=== PATIENT | male | born 1980 | race Two or more races ===

== ENCOUNTER 2016-12-11 04:24 | Inpatient (IN) | payer SELFPAY ==
[~2016-12-11] VITALS: Ht 175.3 cm; Wt 91.4 kg
--- NOTE | ~2016-12-11 | ER ---
PATIENT'S NAME: MATEUSZ ARGUETA [facility] AGE: 36 Y [address] ROOM: [place], [place] [address] LOCATION: [facility] ADMIT DATE: 12/11/2016 ER/Outpatient Report DISCHARGE DATE: FAMILY PHYSICIAN: PHYSICIAN, NO ATTENDING PHYSICIAN: Keven Chapman Admission date and time are documented in the medical record. I saw the patient at 0440 hours. CHIEF COMPLAINT: Elevated blood sugar, polyuria, polydipsia with nausea, vomiting, and lightheadedness. HISTORY OF PRESENT ILLNESS: This patient is a 36-year-old male from [place]. He has been in [place] with family and headed back to [place] with family. Over the past 24 hours, he has become ill with nausea, vomiting, lethargy, and generalized malaise. By history, the patient was diagnosed with diabetes about 3 years ago. He will be classified as a zkx-fqjinan-hnqplmidx diabetic type 2. He was on oral diabetic medications for about 2 years. Over the past year because of his strict diet and exercise program, he has been off of medications and doing well. He went to [place] with family over the past week or so. His diet changed and he has been eating a lot of sugary foods. On the way home here, he has gotten ill. He checked his blood sugar and it was 390. He was brought to the emergency room by family for evaluation. On arrival, he is awake, alert, and responsive. He has no chest pain or shortness of breath. He has no abdominal pain. He has nausea and vomited once. No diarrhea. He has polyuria and has urinated 20+ times in the past 24 hours. He is lightheaded and dizzy, but no syncope or near syncope. No fall or trauma. No recent colds, coughs, flus, fever, chills, or sweats. No headache, eyes, ears, nose, throat, neck, or spine pain. No joint or muscle swelling, redness, or pain. No skin eruptions or rash. No history of neuro changes or psych issues. He does have rfm-yofcrwi-qpgteurht diabetes mellitus type 2. HOME MEDICATIONS: None. ALLERGIES: NONE. SOCIAL HISTORY: Nonsmoker. Occasional intake of alcohol. SIGNIFICANT PAST MEDICAL HISTORY: Ses-kydwvkm-kxzgtbypz diabetes mellitus type 2 otherwise negative. PATIENT'S NAME: MATEUSZ ARGUETA [facility] AGE: 36 Y [address] ROOM: [place] [address] LOCATION: ED ADMIT DATE: 12/11/2016 ER/Outpatient Report DISCHARGE DATE: FAMILY PHYSICIAN: PHYSICIAN, NO ATTENDING PHYSICIAN: Keven Chapman OPERATIONS: None. REVIEW OF SYSTEMS: All systems reviewed by me are negative with the exception of those discussed in the history of present illness. PHYSICAL EXAMINATION: VITAL SIGNS: Temperature 96.7, tympanic, pulse 113, regular, respirations 16, blood pressure 146/98, and O2 saturation on room air is 98%. HEAD: Normocephalic. EYES: Extraocular muscles intact. PERRL. EARS: Clear TMs bilaterally. NOSE: Clear. THROAT: Clear. Mucous membranes moist. NECK: No nuchal rigidity. No thyromegaly or cervical adenopathy. Range of motion full. No tenderness. SPINE: Nontender. No deformity. LUNGS: Clear. No rales, rhonchi, or wheezes. HEART: Regular, tachy, pulses palpable. No chest wall or ribcage pain to palpation. ABDOMEN: Soft, nondistended, nontender. Active bowel tones. No organomegaly or abnormal mass palpable. No CVA tenderness. EXTREMITIES: No peripheral edema, cyanosis, or deformity. NEUROVASCULAR: Intact. SKIN: Clear. No skin eruptions or rash. EMERGENCY DEPARTMENT COURSE: I did start the patient on IV normal saline and fluids. I did give him Zofran for nausea. LABORATORY DATA: Serum acetone was positive 1:32. Venous pH was 7.04. CMS showed a low sodium of 129, low CO2 content of 9, elevated anion gap of 28.5, elevated glucose of 405, low calcium of 7.6, elevated alk phos of 189, magnesium was 2.3. CPK was 89. Yyxeo-fw-yplm cardiac enzymes were normal. White count was 8500, 74 segs, 22 lymphs, 3 monos, 1 baso, hemoglobin is 17.4 with hematocrit 49.2, and platelet count was 213,000. Pro-time is 9.3 with an INR 0.89. Hemoglobin A1c was 11. IMPRESSION: 1. Diabetic ketoacidosis with a pH of 7.04, serum acetone positive 1:32, and elevated blood sugar 405. 2. History of cpt-cznvbqo-xvanxylrv diabetes mellitus type 2, x3 years. PATIENT'S NAME: MATEUSZ ARGUETA [facility] AGE: 36 Y [address] ROOM: [place], [place] [address] LOCATION: [facility] ADMIT DATE: 12/11/2016 ER/Outpatient Report DISCHARGE DATE: FAMILY PHYSICIAN: PHYSICIAN, OKSANA ATTENDING PHYSICIAN: Keven Chapman 3. Polyuria, polydipsia, and elevated blood sugar. PLAN: Discussed the patient with Dr. Bull, hospitalist. We will admit. We did start the patient on IV insulin. We will admit to the hospital. Discussion ensued with the patient concerning my findings and recommendations, he understands. Accumulated critical care time was 30 minutes. KEVEN CHAPMAN MD SDS/modl /[id number] d: 12/11/16621 t: 12/11/16 1808, OUTPATIENT REPORT
--- NOTE | ~2016-12-11 | HP ---
PATIENT'S NAME: VICKI SHUKLA [facility] AGE: 36 Y [address] ROOM: [place] [address] LOCATION: [facility]U ADMIT DATE: 12/11/2016 History & Physical DISCHARGE DATE: FAMILY PHYSICIAN: PHYSICIAN, NO ATTENDING PHYSICIAN: HERMINIA DUTTA DATE OF SERVICE: CHIEF COMPLAINT: Polyuria, polydipsia and generalized weakness. HISTORY OF PRESENT ILLNESS: This is a 36-year-old, Kinyarwanda speaking male who has been diagnosed with diabetes type 1 three years ago back in [place], [place]. At that time, he was using subcutaneous insulin and then he was following a very good diet control and was exercising and his glycemia was under good control. Therefore, somebody over there in [place] stopped the subcu insulin in a type 1 diabetes patient and then recently patient went to [place]. While he was touring in [place], the patient was eating greasy food and salty diet and sweet food and was not exercising anymore. This past Thursday about 4 days ago, the patient started feeling generalized weakness, blurry vision, nausea, and vomiting x1, polyuria, polydipsia, and just not feel well in general. The patient came to [place] yesterday to visit a friend and because of the worsening of the symptoms, the patient came here to the ED for evaluation. In the ED, the patient was found to be in full-blown DKA and will be admitted for care of DKA. The cause is most likely consistent with dietary indiscretion and the discontinuation of the subcu insulin use. The patient denies any headache, cough, shortness of breath, chest pain, fever, chills or dysuria or any other symptoms. REVIEW OF SYSTEMS: As mentioned in the history of present illness. All other systems were reviewed and were negative except those mentioned in history of present illness. PAST MEDICAL HISTORY: Diabetes type 1 diagnosed 3 years ago. ALLERGIES: NONE. HOME MEDICATIONS: None. PATIENT'S NAME: VICKI SHUKLA [facility] AGE: 36 Y [address] ROOM: [address] [address] LOCATION: [facility]PCU ADMIT DATE: 12/11/2016 History & Physical DISCHARGE DATE: FAMILY PHYSICIAN: PHYSICIAN, NO ATTENDING PHYSICIAN: HERMINIA DUTTA SOCIAL HISTORY: Social alcohol drinker, but he denies any cigarette or any illegal drug use. FAMILY HISTORY: Both parents are healthy. PAST SURGICAL HISTORY: None. PHYSICAL EXAMINATION: VITAL SIGNS: At the time of my dictation, temperature 98, blood pressure 145/87, respirations 16, heart rate 90 and saturation 97% on room air. GENERAL APPEARANCE: Alert and oriented x3, in no acute distress. HEENT: Pupils equally round and reactive to light. Extraocular muscles intact. Anicteric sclerae. Nasal turbinates are normal bilaterally. Dry oral mucosa. NECK: No JVD. CARDIOVASCULAR: Regular rate and rhythm. No murmur. No rubs. No gallops. Normal S1, S2. RESPIRATORY: Clear to auscultation. No rales. No rhonchi. No wheezing. No crackles. ABDOMEN: Soft, mildly tender to palpation diffusely, but there is no abdominal rigidity, bowel sounds present, no mass, nondistended, no ascites. EXTREMITIES: No edema in upper or lower extremities. NEUROLOGICAL: Grossly nonfocal. SKIN: No ulcer, no rash, no cyanosis. LABORATORY DATA: Venous blood gas show pH of 7.04, pCO2 of 29 and bicarb was 7.8. CPK 89 and troponin less than 0.04. White blood cell 8.5, hemoglobin 17.4, hematocrit 49.2, platelet 213. Glucose 405, BUN 19, creatinine 1.0. Sodium 129, potassium 4.5, chloride 96, CO2 9, calcium 7.6, total protein 8.9, albumin 4.4, AST 64, ALT 138, alkaline phosphatase 189, total bilirubin 0.7, magnesium 2.3, anion gap 28.5, GFR more than 60. A1c 11, INR 0.89. Urinalysis negative for UTI. CK-MB 0.7. Acetone positive. IMAGING STUDIES: None. ASSESSMENT AND PLAN: 1. Regarding his DKA in the setting of a type 1 diabetes from dietary indiscretion and the discontinuation of subcu insulin use. The plan will be to continue with the DKA protocol with insulin drip and we will be checking basic metabolic panel and venous blood gas every 2 hours and PATIENT'S NAME: MATEUSZ ARGUETA [facility] AGE: 36 Y [address] ROOM: [place] [address] LOCATION: [facility] ADMIT DATE: 12/11/2016 History & Physical DISCHARGE DATE: FAMILY PHYSICIAN: PHYSICIAN, NO ATTENDING PHYSICIAN: HERMINIA DUTTA modify the IV fluids choice and replace the electrolytes as necessary per DKA protocol. Once glucose reaches 250, we will be switching to half normal saline with D5 water for hydration. The cause here is from the story from dietary indiscretion and discontinuation of the use of the subcu insulin. The patient denies any other symptoms. Therefore, I am not going to do any EKG or chest x-ray or blood culture or urine culture given that he denies any other symptoms. Further plan will depend on clinical course. 2. Regarding his DVT prophylaxis. The patient is young, can ambulate, does not require any pharmacological agent. 3. He is full code. Time spent in care on the day of admission 35 minutes where 25 minutes was spent on counseling by going over the plan of care with the patient and also addressing all the questions and concerns that the patient had, and answered all his questions to his satisfaction. The remainder of the time was spent on chart review. The 25 minutes spent will also include interview and physical examination. Further plan will depend on clinical course. HERMINAI DUTTA MD CC/vinicio /[id number] D: [id number] T: 120 HISTORY & PHYSICAL
--- NOTE | ~2016-12-11 | DS ---
PATIENT'S NAME: MATEUSZ ARGUETA [facility] AGE: 36 Y [address] ROOM: [address] [place], [place] [address] LOCATION: GPCU ADMIT DATE: 12/11/2016 Discharge Summary DISCHARGE DATE: 12/13/2016 FAMILY PHYSICIAN: , OKSANA ATTENDING PHYSICIAN: Vimal Bull PRIMARY DIAGNOSES FOR THIS HOSPITALIZATION: 1. Diabetic ketoacidosis. 2. Insulin-dependent diabetes mellitus, poorly controlled. 3. Fatty liver. 4. Hypertriglyceridemia. SUMMARY OF HOSPITALIZATION: The patient is a 36-year-old male who previously insulin-dependent diabetic who has stopped taking his insulin and has had considerable dietary noncompliance in the last 6 months. He was admitted with profound DKA with an anion gap of 28.5. He was found to have a hemoglobin A1c of 11. He was treated with standard DKA protocol with IV insulin, potassium containing fluids, and eventually sliding scale. His anion gap closed, he felt better, and tolerated a regular diet. During the course of hospital stay, he did show some transaminitis and his lipid profile showed a triglyceride of 427. On the ultrasound of his liver, he did show fatty liver. Today, the patient feels well and would like to go home. When he is going to transfer, I explained to the patient that he has to revert back to strict diabetic diet. He is also to restart using insulin with Levemir as well as a sliding scale until he is seen by his PCP and his hypoglycemic regimen is adjusted. I also discussed the fatty liver with transaminase elevation with the patient and explained to him that he will probably benefit from a Gastroenterology evaluation back home in [place], where he lives. For the time being, we will start him on atorvastatin and fish oil. He was strongly encouraged to reestablish care with PCP as well as with traveling phlebotomist. Him and his brother were present for this discussion via a sensor technician and acknowledged understanding. The patient will be discharged home with family and expects to travel back to [facility] today. DISCHARGE MEDICATIONS: 1. NovoLog sliding scale, moderate. 2. Levemir 15 units at q.h.s. 3. Atorvastatin 20 mg daily. 4. Fish oil 1200 mg 2 tablets daily. Time dedicated to this patient encounter is 35 minutes. PATIENT'S NAME: MATEUSZ ARGUETA [facility] AGE: 36 Y [address] ROOM: [address] [address] LOCATION: GPCU ADMIT DATE: 12/11/2016 Discharge Summary DISCHARGE DATE: 12/13/2016 FAMILY PHYSICIAN: OKSANA SOLER ATTENDING PHYSICIAN: Vimal Bull MD STAN CABEZAS/vinicio /[id number] d: 12/13/16 2347 t: 12/21/16 2313, DISCHARGE SUMMARY
[2016-12-11 04:56] LABS: BICARBONATE 7.8 mmol/L (18.0-23.0); PCO2 29 mmHg (35-45)
[2016-12-11 04:57] LABS: BASOPHIL # 0.1 K/uL (0.0-0.2); BASOPHIL % 0.8 %; EOSINOPHIL % 0.1 %; HEMATOCRIT 49.2 % (37.0-53.0); HEMOGLOBIN 17.4 g/dL (12.0-17.0); IMMATURE GRANULOCYTE # 0.1 K/uL (0.0-0.3); IMMATURE GRANULOCYTE % 0.7 %; LYMPHOCYTE # 1.8 K/uL (0.8-4.0); LYMPHOCYTE % 21.5 %; MCH 29.6 pg (27.0-34.0); MCHC 35.4 gm/dL (32.0-36.5); MCV 83.7 fl (83.0-98.0); MONOCYTE # 0.3 K/uL (0.0-1.0); MPV 12.2 fl (9.4-12.4); NEUTROPHIL # (ANC) 6.3 K/uL (1.4-9.0); NEUTROPHIL % 73.9 %; NRBC % 0 /100WBC (0-0.00); PLATELET COUNT 213 K/uL (150-450); RBC 5.88 M/uL (4.00-6.00); RDW-CV 13.5 % (11.9-14.6); WBC 8.5 K/uL (4.0-11.0)
[2016-12-11 05:04] LABS: PO2 35 mmHg (80-90)
[2016-12-11 05:07] LABS: INR - (THERAPEUTIC) 0.89 (0.92-1.07); PROTIME 9.3 SECONDS (9.8-11.4)
[2016-12-11 05:19] LABS: ALBUMIN 4.4 gm/dL (3.5-5.0); ALK PHOS 189 IU/L (33-138); BLOOD UREA NITROGEN 19 mg/dL (6-24); CALCIUM 7.6 mg/dL (8.5-10.5); CHLORIDE 96 mMol/L (96-110); ESTIMATED GFR (MDRD EQUATION) > 60; TOTAL BILIRUBIN 0.7 mg/dL (0.0-1.5)
[2016-12-11 05:26] LABS: ANION GAP 28.5 (10.0-19.0); CO2 9 mMol/L (22-32); POTASSIUM 4.5 mMol/L (3.7-5.1)
[2016-12-11 05:27] LABS: CPK 89 IU/L (35-332); MAGNESIUM 2.3 mg/dL (1.8-2.6)
[2016-12-11 05:28] LABS: TOTAL PROTEIN 8.9 g/dL (6.0-8.4)
[2016-12-11 05:29] LABS: SODIUM 129 mMol/L (135-145)
[2016-12-11 05:45] LABS: BILIRUBIN URINE NEGATIVE (NEGATIVE); BLOOD URINE 25 /UL (NEGATIVE); COLOR URINE YELLOW (YELLOW); GLUCOSE URINE 1000 mg/dL (NEGATIVE); KETONE URINE 150 mg/dL (NEGATIVE); LEUKOCYTES URINE NEGATIVE /UL (NEGATIVE); NITRITE URINE NEGATIVE (NEGATIVE); PROTEIN URINE 100 mg/dL (NEGATIVE); SPEC GRAVITY URINE 1.025 (1.003-1.035); TURBIDITY URINE CLEAR (CLEAR); UROBILINOGEN URINE NORMAL (NORMAL)
[2016-12-11 05:47] LABS: ALT 138 IU/L (12-78); AST 64 IU/L (10-40)
[2016-12-11 05:52] LABS: BACTERIA URINE NEGATIVE (NEGATIVE); HYALINE CAST URINE 0-2 #/LPF (NEGATIVE); RBC URINE 0-2 #/HPF (NEGATIVE); WBC URINE 0-2 #/HPF (NEGATIVE)
[2016-12-11 08:30] LABS: BICARBONATE 7.2 mmol/L (18.0-23.0); PCO2 30 mmHg (35-45)
[2016-12-11 08:38] LABS: PO2 38 mmHg (80-90)
[2016-12-11 08:50] LABS: BLOOD UREA NITROGEN 15 mg/dL (6-24); CHLORIDE 107 mMol/L (96-110); CREATININE 0.9 mg/dL (0.6-1.3); ESTIMATED GFR (MDRD EQUATION) > 60; SODIUM 135 mMol/L (135-145)
[2016-12-11 08:51] LABS: ANION GAP 26.2 (10.0-19.0); CALCIUM 6.7 mg/dL (8.5-10.5); CO2 6 mMol/L (22-32); POTASSIUM 4.2 mMol/L (3.7-5.1)
[2016-12-11 10:02] LABS: BICARBONATE 5.8 mmol/L (18.0-23.0)
[2016-12-11 10:11] LABS: PCO2 21 mmHg (35-45); PO2 91 mmHg (80-90)
[2016-12-11 10:21] LABS: BLOOD UREA NITROGEN 14 mg/dL (6-24); CHLORIDE 109 mMol/L (96-110); CREATININE 0.9 mg/dL (0.6-1.3); ESTIMATED GFR (MDRD EQUATION) > 60; SODIUM 136 mMol/L (135-145)
[2016-12-11 10:23] LABS: ANION GAP 25.3 (10.0-19.0); CALCIUM 7.4 mg/dL (8.5-10.5); CO2 6 mMol/L (22-32); POTASSIUM 4.3 mMol/L (3.7-5.1)
[2016-12-11 11:53] LABS: BICARBONATE 8.4 mmol/L (18.0-23.0); PCO2 27 mmHg (35-45); PO2 59 mmHg (80-90)
--- NOTE | 2016-12-11 11:54 | NUR ---
Diabetes Center note; 1130 As per history from , patient was diagnosed with type 1 diabetes x3 years ago, but patient has not been taking insulin for a least the past one year, as per cousin, Angelica who is sitting at patient's bedside. Patient is currently sleeping, provided Diabetes Management booklet and survival skills assessment form to Angelica who is willing to assist patient in completing this form, when patient is alert and can answer questions. Angelica states that she did not know that patient had diabetes, for this past week, their extended family for on vacation in [facility] and she states they ate out "alot", giving examples of foods high in carb like pizza, sweets, tacos etc. 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 CDE did discuss with Angelica that we are certain that patient will need to take insulin and blood sugars after being dismissed from hospital, when CDE asks Angelica if they have finances to be able to purchase supplies, she states that they will be able to purchase whatever he may need to take care of himself. Anticipate that CDE will need to spend much time with patient, reeducating of type 1 diabetes, provide some supplies to assist patient with diabetes management at home. Angelica states that the patient had previously told her that he has lost his blood glucose monitor, so plan to provide what we can to assist patient prior to dismissal. Will continue to follow to assess educational needs and provided education.
[2016-12-11 12:11] LABS: BLOOD UREA NITROGEN 12 mg/dL (6-24); CHLORIDE 109 mMol/L (96-110); CREATININE 0.9 mg/dL (0.6-1.3); ESTIMATED GFR (MDRD EQUATION) > 60; SODIUM 135 mMol/L (135-145)
[2016-12-11 12:12] LABS: CALCIUM 7.2 mg/dL (8.5-10.5); CO2 7 mMol/L (22-32)
--- NOTE | 2016-12-11 12:19 | NUR ---
1135 Introduced self and CM role to Connor and his friend, Gin, who was at bedside. Connor tells me that he lives at home in [place], [place] and he plans to return there when he is able to do so. His friend Gin tells me that they were driving through on their way home and he started to feel bad so she brought him into us. Connor didn't talk a lot during our visit, he said he was sleepy so I did talk mostly with his friend Gin. Inquired if he had insurance, he tells me he does not. Admissions packet was at bedside and financial assistance form was left inside of it for them to fill out upon dismissal. Both croatian and portuguese financial assistace forms were left for him. Both Connor and his friend deny any other questions, needs or concerns at this time. CM to continue to follow and assist. Plan home.
--- NOTE | 2016-12-11 14:05 | NUR ---
Diabetes center note; 1400 Provided x2 new meters and strips for testing blood sugars, patient remains on insulin drip and they have not yet completed the assessment form to assess educational needs. Patient continue to be sleepy, but is alert and oriented. Will see in a.m of 12/12/16
[2016-12-11 16:16] LABS: ALBUMIN 3.2 gm/dL (3.5-5.0); BLOOD UREA NITROGEN 12 mg/dL (6-24); CHLORIDE 110 mMol/L (96-110); CREATININE 0.8 mg/dL (0.6-1.3); ESTIMATED GFR (MDRD EQUATION) > 60
[2016-12-11 16:17] LABS: POTASSIUM 3.7 mMol/L (3.7-5.1)
[2016-12-11 16:18] LABS: ANION GAP 19.7 (10.0-19.0); CALCIUM 7.4 mg/dL (8.5-10.5); CO2 11 mMol/L (22-32); PHOSPHORUS 1.7 mg/dL (2.5-4.9)
[2016-12-11 16:19] LABS: SODIUM 137 mMol/L (135-145)
--- NOTE | 2016-12-11 19:40 | NUR ---
Significant Event:Patient continues on insulin gtt. Is drowsy, but easily rouses. Appetite poor. No c/o pain. Started on PO Bicarb after getting 1L of IV fluid with dicarb in it. Follow up:monitoring lab
--- NOTE | 2016-12-11 19:47 | NUR ---
D:Patient admitted per cart to room 6304 with insulin gtt already running. Is alert and oreintated. No c/o pain. Friend helped answer questions, she felt comfortable without using market basket maker or machine. No c/o pain. P:Monitor blood sugars
[2016-12-12 04:27] LABS: ALBUMIN 2.9 gm/dL (3.5-5.0); ANION GAP 12.8 (10.0-19.0); BLOOD UREA NITROGEN 10 mg/dL (6-24); CALCIUM 7.4 mg/dL (8.5-10.5); CHLORIDE 111 mMol/L (96-110); CO2 18 mMol/L (22-32); CREATININE 0.7 mg/dL (0.6-1.3); ESTIMATED GFR (MDRD EQUATION) > 60; MAGNESIUM 1.9 mg/dL (1.8-2.6); PHOSPHORUS 1.7 mg/dL (2.5-4.9); POTASSIUM 2.8 mMol/L (3.7-5.1); SODIUM 139 mMol/L (135-145)
--- NOTE | 2016-12-12 04:37 | NUR ---
Significant Event: Patient A/Ox3. VSS on RA. Patient's assessment is negative aside from blood sugar issues. Insulin gtt currently runing at 7.0 units/hr. Up SBA to bathroom. NS at 200ml/hr. Follow up: Continue plan of care
--- NOTE | 2016-12-12 14:23 | NUR ---
Diabetes Center notes: [id number] and again from [id number] Started Diabetes checklist and education is provided on all topics. Unsure if patient has Type 1 diabetes, because c peptide and antibodies lab was not done. Instructed in much detailed and stressed to patient and Angelica (friend/family member) that it is so very important for patient to continue to take insulin, do not ever stop taking insulin injections, as this will lead to DKA and/or . Both state understanding Angelica interprets for patient throughout the educational session and both ask appropriate questions. Discussed insulin action, (Levemir, Novolog) site rotation and storage. Brenna, primary care nurse agrees to have patient demonstrate how to draw up and injection insulin when they do start him on subqu insulin today. 2 meters provided and strips to get started, they are planning to travel back to [place] (which is [address] from [place]) Details provided for traveling, food, glucose, snacks, etc. in preparation for trip. Information provided to them and stressed importance of patient setting up appointment with primary care provider in [place]. Phone number and name of hospital close to where patient resides, for on-going [employer]. Since patient had taken insulin in the past, we still discussed all education in great detail and written materials in both czech and finnish given to them. Log book provided, explained use, testing times, to test prior to each meal and bedtime, to take this record to MD to evaluate. Meal planning with carb counting discussed and recommended to start 75 grams of carb at each meal, with snacks in between. 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 Patient agrees that he needs to make changes in lifestyle with regards to eating out, patient states "...I know I need to get rid of the junk." A1C 11 % on admission and target is 6.5 -7 %. Anticipate that patient will be here at least one more day, just starting eating today and insulin gtt to be discontinued this afternoon. Insulin syringes, lancets, meter and strips supplies given and recommended that when they get the script for insulin filled, after dismissal, before make a trip home that they also obtain a medic alert bracelet. Both Angelica and patient states understanding and agree to let primary care nurse know if they have other questions or concerns prior to dismissal. Scripts written and applied to chart for MD to sign prior to dismissal for Quique Contour test strips and insulin syringes.
--- NOTE | 2016-12-12 15:19 | NUR ---
CONSULT FOR DKA, DIABETIC DIET EDUCATION. RD VISITED PT FOR DIABETIC DIET EDUCATION ON 12/11 W/ FRIEND'S ASSISSTANCE IN TRANSLATION. DIET EDUCATION MATERIAL LEFT W/ PT WELL. PT MIGHT BENEFIT FROM OUTPATIENT SETTING TO FOLLOW-UP WITH DIABETIC DIET AT HOME.
--- NOTE | 2016-12-12 15:20 | NUR ---
Significant Event: A/O x 3,cooperative with cares. VSS. UP with stand by assist or with family. Insulin gtt dc'd this afternoon, now ACHS accuchecks with moderate SS. PO potassium given x 1 and IV potassium phosphate given. No c/o pain. PIV to L) AC infusing .45 NaCl. museum educator saw and self injection of insulin was taught, patient tolerated well. Family at bedside. Follow up:Monitor blood sugars
[2016-12-12 18:51] LABS: ALBUMIN 3.2 gm/dL (3.5-5.0); ALK PHOS 105 IU/L (33-138); ALT 145 IU/L (12-78); ANION GAP 13.5 (10.0-19.0); AST 114 IU/L (10-40); BLOOD UREA NITROGEN 7 mg/dL (6-24); CALCIUM 8.2 mg/dL (8.5-10.5); CHLORIDE 106 mMol/L (96-110); CO2 23 mMol/L (22-32); CREATININE 0.6 mg/dL (0.6-1.3); ESTIMATED GFR (MDRD EQUATION) > 60; PHOSPHORUS 2.2 mg/dL (2.5-4.9); POTASSIUM 3.5 mMol/L (3.7-5.1); SODIUM 139 mMol/L (135-145); TOTAL BILIRUBIN 0.6 mg/dL (0.0-1.5); TOTAL PROTEIN 6.5 g/dL (6.0-8.4)
[2016-12-13 04:27] LABS: ALBUMIN 3.1 gm/dL (3.5-5.0); ALK PHOS 95 IU/L (33-138); ALT 155 IU/L (12-78); ANION GAP 14.3 (10.0-19.0); AST 111 IU/L (10-40); BLOOD UREA NITROGEN 5 mg/dL (6-24); CALCIUM 7.9 mg/dL (8.5-10.5); CHLORIDE 106 mMol/L (96-110); CO2 23 mMol/L (22-32); CREATININE 0.5 mg/dL (0.6-1.3); ESTIMATED GFR (MDRD EQUATION) > 60; PHOSPHORUS 2.3 mg/dL (2.5-4.9); POTASSIUM 3.3 mMol/L (3.7-5.1); SODIUM 140 mMol/L (135-145); TOTAL BILIRUBIN 0.6 mg/dL (0.0-1.5); TOTAL PROTEIN 6.3 g/dL (6.0-8.4)
--- NOTE | 2016-12-13 04:35 | NUR ---
Significant Event: Patient A/Ox3. VSS on RA. No complaints of pain. 40mEq of KCl given at HS. Potassium this morning dropped to 3.3. Hepatitis panel drawn this AM, ultrasound of gallbladder this morning to rule out cholecystitis. Accucheck at HS was 269. Follow up: Ultrasound this AM.
[2016-12-13] MEDS ORDERED: LEVEMIR100 UNIT/1 SUB-Q (15:36)
[2016-12-13] MEDS ORDERED: NOVOLOG100 UNIT/M SUB-Q (15:36)
[2016-12-13] MEDS ORDERED: LIPITOR20 M1 PO (15:38)
[2016-12-13] MEDS ORDERED: FISH OIL 1,2001 EAC1 PO (15:40)
--- NOTE | 2016-12-13 19:04 | NUR ---
PATIENT DISMISSED WITH FRIENDS BY PRIVATE CAR. PATIENT TRANSFERED TO CAR BY RN. REVIEWED DISMISSAL INSTRUCTIONS WITH PATIENT THROUGH [employer] TENNIS DESK TEAM MEMBER. REVIEWED MEDICATIONS ORDERED AND INSULIN SLIDING SCALE ORDERED, PATIENT VERBALIZED UNDERSTANDING. GAVE PATIENT INFORMATION SHEETS ON NEW MEDICATIONS (IN [place]). RN ASKED PATIENT THROUGH [employer] IF HE HAD ANY QUESTIONS, AND HE STATED HE DID NOT. PATIENT WAS INSTRUCTED TO CHECK BLOOD SUGARS ORDERED AND TAKE INSULIN PRESCRIBED BY PHYSICIAN. PATIENT WAS INSTRUCTED BY RN THAT IF HE HAD QUESTIONS, OR HAD PROBLEMS WITH BLOOD SUGAR LEVELS OR MEDICATIONS, TO CALL HIS PHYSICIAN. PATIENT STATED HE UNDERSTOOD AND HAD NO FURTHER QUESTIONS.
== END 2016-12-13 17:40 | disposition disaster alternative care site (69) | DRG 639 ==
LOC: GMED 04:24 → GPCU 07:10
PROVIDERS: Emergency Medicine; Internal Medicine; ADMIT Internal Medicine
DX: E10.10 Type 1 diabetes mellitus with ketoacidosis without coma (principal); K76.0 Fatty (change of) liver, not elsewhere classified; E83.39 Other disorders of phosphorus metabolism; Z91.14 Patient's other noncompliance with medication regimen; Z91.19 Patient's noncompliance with other medical treatment and regimen; E78.1 Pure hyperglyceridemia; R74.0 Nonspecific elevation of levels of transaminase and lactic acid dehydrogenase [LDH]; Z79.4 Long term (current) use of insulin; E87.6 Hypokalemia; Z23 Encounter for immunization
CPT/HCPCS: G0009; J2405; J7030; J7040; J7050